=== PATIENT | female | born 1980 | race Two or more races ===

== ENCOUNTER 2025-01-24 09:43 | Outpatient (CLI) | payer BC, SELFPAY ==
--- NOTE | ~2025-01-24 | US_ITS ---
EXAM: PELVIC ULTRASOUND HISTORY: HEAVY VAGINAL BLEEDING, ABNORMAL UTERINE BLEEDING COMPARISON: None. FINDINGS: UTERUS: 8.6 x 6.7 x 5.0 cm. The uterus is anteverted and anteflexed. The endometrial complex measures 5 mm. A striated appearance of the myometrium is present, for which adenomyosis is suspected Within the posterior fundus of uterus is focus of mixed echogenicity measuring 4.2 x 3.4 x 4.2 cm, li sameer representing fibroid. RIGHT OVARY: The right ovary is unremarkable in echogenicity and size measuring 2.7 x 2.3 x 2.1 cm. Dopplerable flow is identified. Dominant follicle is noted within the right ovary. LEFT OVARY: Despite prolonged interrogation, the left ovary was not visualized No free fluid is identified within the pelvis. IMPRESSION: Fibroid uterus. Dominant follicle within the right ovary. Findings within the myometrium of the uterus suggesting adenomyosis. Reviewed, dictated and finalized at location A.
[2025-01-24 10:08] LABS: Hematocrit 29.6 % (35.0-49.0); Hemoglobin 7.9 g/dL (12.0-15.0); Mean Corpuscular HGB Conc 26.7 g/dL (32-36); Mean Corpuscular Volume 63.5 fL (78.0-102.0); Mean Platelet Volume 9.4 fl (9.2-11.8); Platelet Count Result 360 K/mm3 (150-420); Red Blood Count 4.66 M/mm3 (4.20-5.40); Red Cell Distribution Width 19.5 % (11.6-14.4); White Blood Count 6.5 K/mm3 (4.8-10.8)
[2025-01-24 10:37] LABS: Ferritin 3 ng/mL (8-252)
[2025-01-24 10:51] LABS: Iron 10 ug/dL (50-170); Percent Iron Saturation 3 % (12-57)
== END 2025-01-24 09:44 | disposition home or self-care (01) ==
PROVIDERS: PCP Internal Medicine; Visit Provider Nurse Practitioner Family
DX: N93.9 Abnormal uterine and vaginal bleeding, unspecified (principal); D25.9 Leiomyoma of uterus, unspecified
CPT/HCPCS: 36415; 76830; 76856; 82728; 83540; 83550; 85027

== ENCOUNTER 2025-02-01 09:09 | Outpatient (CLI) | payer BC, SELFPAY ==
[2025-02-01 09:32] VITALS: BP 124/63; PULSE 68; RESP 14; TEMP 36.6; O2SAT 99; BMI 24.1
[2025-02-01] MEDS: IRON SUCROSE COMPLEX 300 MG in SODIUM CHLORIDE 0.9% IV 235 ML 125 MG IVPB (09:45)
[2025-02-01 12:03] VITALS: BP 124/68; PULSE 78; RESP 14; O2SAT 100
--- NOTE | 2025-02-01 12:04 | PC.NURSE ---
Patient here for Venofer infusion. Education given. All concerns voiced answered. Infusion administered. SEE MAR/patient care notes. Tolerated well.
== END 2025-02-01 09:10 | disposition home or self-care (01) ==
PROVIDERS: PCP Internal Medicine; Visit Provider Internal Medicine
DX: D50.9 Iron deficiency anemia, unspecified (principal)
CPT/HCPCS: 96365; 96366; J1756; J7050

== ENCOUNTER 2025-02-09 09:17 | Outpatient (CLI) | payer BC, SELFPAY | END 2025-02-09 09:18 | disposition home or self-care (01) | LOC: CHSTREATRM 12:45 | PROVIDERS: PCP Internal Medicine; Visit Provider Nurse Practitioner Family | DX: D50.9 Iron deficiency anemia, unspecified (principal) | CPT/HCPCS: 96365; 96366; J1756 ==

== ENCOUNTER 2025-03-07 11:22 | Outpatient (CLI) | payer BC, SELFPAY ==
--- NOTE | 2025-03-07 11:57 | ECG_ITS ---
Test Date: 2025-03-07 12:08:28 Measurements Intervals [place] Rate: 58 P: 22 MS: 132 QRS: 46 QRSD: 85 T: 32 QT: 418 QTc: 411 Interpretive Statements SINUS BRADYCARDIA RSR' IN V1 OR V2, PROBABLY NORMAL VARIANT No previous ECG available for comparison Electronically Signed On 03-08-2025 15:06:26 CDT by Andrea Dukes M.D.
[2025-03-07 12:03] LABS: Hemoglobin 13.7 g/dL (12.0-15.0); Immature Platelet Fraction Pct 3.5 % (1.0-7.0); Mean Corpuscular HGB Conc 29.8 g/dL (32-36); Mean Corpuscular Hemoglobin 23.4 pg (27.0-31.0); Mean Corpuscular Volume 78.6 fL (78.0-102.0); Mean Platelet Volume 9.8 fl (9.2-11.8); Platelet Count Result 253 K/mm3 (150-420); Red Blood Count 5.85 M/mm3 (4.20-5.40); White Blood Count 5.9 K/mm3 (4.8-10.8)
== END 2025-03-07 11:23 | disposition home or self-care (01) ==
LOC: CHSLAB 11:26
PROVIDERS: PCP Internal Medicine; Visit Provider Obstetrics & Gynecology
DX: Z01.818 Encounter for other preprocedural examination (principal); R00.1 Bradycardia, unspecified
CPT/HCPCS: 36415; 85027; 85055; 93005

== ENCOUNTER 2025-03-28 00:58 | Day surgery (SDC) | payer BC, SELFPAY ==
[2025-03-20 16:40] VITALS: BMI 24.7
--- NOTE | 2025-03-20 17:22 | PC.NURSE ---
Report to the Outpatient Waiting Room, entrance under the green pavilion located off [facility], at 0800 on 03-28-25. Planned Procedure Time: 1000.? Time changes happen often and if your time is changed the preop area will call you the afternoon before. - You and your visitor will be asked to self-screen and do not enter if you have any COVID symptoms. Please call surgeon if you need to reschedule. - A mask is optional within the hospital at this time. Patients may have clear liquids (water, carbonated beverages, clear teas, apple juice) until 3 hours prior to surgery with a maximum of 20 ounces. 0700 - No food from midnight until time of surgery and no smoking, or chewing tobacco (or any form of nicotine). No chewing gum, candy or mints. - Infants may have breast milk until 4 hours before surgery, formula 6 hours prior to surgery. - Children will be allowed to drink immediately following surgery.? If applicable, please bring a bottle or sippy cup to assist with drinking. Juice, water, soda, and popsicles are readily available.? For infants on formula, please bring formula the day of surgery.? Pacifiers are allowed. Take only the following medications with a SIP of water on the morning of surgery: control DO NOT STOP ANY OF YOUR OTHER PRESCRIPTION MEDICATIONS PRIOR TO SURGERY EXCEPT THE FOLLOWING Hold all vitamins and supplements for 3 days per anesthesiologist. Medications to discontinue per physician: N/A Please no make-up, nail comoran, hairspray, perfume, deodorant, or body powder the day of surgery.? No jewelry (including any body piercings) or valuables the day of surgery, leave them at home.? Please take a shower or bath the night before, or the morning of, surgery with an antibacterial soap.? Wear comfortable, loose fitting clothing.? Children are encouraged to wear pajamas. - Jewelry must be removed prior to entering the operating room.? Rings and piercings that are not removed may be cut off. - The hospital will not accept responsibility for valuables.? - Please leave all valuables, including medications, at home the day of surgery. If you are going home after surgery, a licensed rolloff driver must drive you home.? - NO public transportation without another adult if you receive anesthesia. - We recommend that an adult stay with you for 24 hours following discharge. - We also recommend that you do not drive, make important decision, drink alcoholic beverages, or take any drugs that were not prescribed by your health care provider for at least 24 hours after your discharge time. For Pediatric surgeries, we recommend two adults accompany the child home. Follow any additional instructions given to you from your surgeon. Telephone instructions given to Andres Arriaza and asked if any additional questions and then verbalized understanding. Patient advised to call surgeon office or pre surgery nurse liaison [phone] if any additional questions.
[2025-03-28] MEDS: ACETAMINOPHEN 500 MG TABLET 1000 MG PO (10:00)
[2025-03-28] MEDS: LACTATED RINGERS 1,000 ML 30 ML IV CONT (10:00)
--- NOTE | 2025-03-28 10:04 | WPDANESEPPF ---
Anes - Initial Pre Proc Eval Procedure: Operation Date: 03/28/25 11:00 Proposed Procedures p Hysteroscopy Dilation and Curettage with Possible Removal of Any Endometrial Lesions if Necessary - Philip Bae MD Date/Time: 03/28/25 10:04 Surgeon: Philip Bae MD Pre Op Diagnosis: abnormal uterine bleeding Patient Data Age: 45 Gender: F Height: 1.57 m Weight: 61.24 kg Allergies Allergy/AdvReac Type Severity Reaction Status Date / Time No Known Allergies Allergy Unverified 03/20/25 16:41 Home Medications ?Medication ?Instructions ?Recorded ?Confirmed ?Type drospirenone (contraceptive) 4 mg 1 tablet PO DAILY 03/07/25 03/20/25 History (28) tablet (Slynd) CBD See Rx Instructions .Route .COMPLEX 03/20/25 03/20/25 History cholecalciferol (vitamin D3) 125 125 mcg PO DAILY 03/20/25 03/20/25 History mcg (5,000 unit) tablet (Vitamin D3) lactobacillus combo no.11 15 1 cap PO DAILY 03/20/25 03/20/25 History billion cell sprinkle capsule (Probiotic) vitamin B complex (B-Complex 1 tablet PO DAILY 03/20/25 03/20/25 History tablet) Patient hx anesthesia problems: none Family hx anesthesia problems: none Results Review: All pre-operative results and documents have been reviewed as part of the pre-operative evaluation. [facility] Surgical History Surgical History Hx of breast reduction, elective Family History Family History Father Colon cancer Mother Depression Anxiety Grandparent Diabetes mellitus Heart disease Social History Social History Smoking status: Never smoker Tobacco type: cigarettes Second hand tobacco smoke exposure: No Alcohol intake: never Substance use: never Substance use type: does not use Anes - Eval Final PreProcedure Day of Procedure 03/28/25 10:04 Patient weight: normal Heart: regular rate and rhythm Lungs: clear to auscultation Airway: Mallampati scale class II Neurological: alert and oriented Last oral intake: >/= 8 hours ASA classification: II Emergent: no Anesthetic plan: proceed Anesthesia type and monitoring: general GIVS and standard monitoring Results Review: All pre-operative results and documents have been reviewed as part of the pre-operative evaluation. Informed Consent: The patient's anesthetic plan and its attendant risks and benefits were discussed with the patient/family/POA. Questions were solicited and answers provided to the satisfaction of the patient/family/POA.
--- NOTE | 2025-03-28 10:30 | WPDHPUPDATE1 ---
History and Physical Update Update Date/Time: 03/28/25 10:30 History and Physical has been reviewed, including an updated exam of the patient. There are NO changes in the patient's condition. Risks, benefits, and alternatives have been discussed and questions answered. Patient agrees to proceed with procedure.
--- NOTE | 2025-03-28 10:37 | WPDHPUPDATE1 ---
History and Physical Update Update Date/Time: 03/28/25 10:37 History and Physical has been reviewed, including an updated exam of the patient. There are NO changes in the patient's condition. Risks, benefits, and alternatives have been discussed and questions answered. Patient agrees to proceed with procedure.
[2025-03-28 10:45] VITALS: BP 112/65; PULSE 68; TEMP 36.4; O2SAT 100; BMI 25.0
[2025-03-28 10:50] LABS: BEDSIDEPREGUCG Negative (Negative)
[2025-03-28] MEDS: ceFAZolin 2 GM/D5W 50 ML 2 GM/50 ML BAG IVPB (10:51)
[2025-03-28] MEDS: LIDOCAINE 1% LOCAL INJ 10 ML VIAL INFILTRATE (11:08)
--- NOTE | 2025-03-28 11:16 | S_PTH ---
PATIENT: Andres Arriaza LOC: [facility]#:[id number] AGE/SX: 45/F ROOM: RE03/28/[address]: Philip Bae MD : 1980 BED: DIS: 03/28/2025 SPEC #: [id number] RECD: 03/28/25 12:31 STATUS: WALKER REQ #: [id number] MAURA: 03/28/25 11:[address]: Philip Bae DEPT: [facility] Surgical RECD BY: Yakov Huber ENTERED: 03/28/25 12:32 SP TYPE: Surgical OTHR DR: Carlos Pratt MD Tissues: A - Endometrial Curettings Procedures: Hematoxylin and Eosin Stain Gross and Microscopic Level 4
[2025-03-28 11:26] VITALS: BP 88/59; PULSE 63; RESP 14; O2SAT 100
--- NOTE | 2025-03-28 11:48 | P.OP_ITS ---
Procedure Note - Detailed Date of Procedure 03/28/25 Pre-op Diagnosis abnormal uterine bleeding, endometrial polyp on endometrial biopsy Post-op Diagnosis Same Procedure Performed hysteroscopy dilation and curettage and removal of endometrial lesion Surgeon Philip Bae MD Anesthesia MAC and Local Indications abnormal uterine bleeding, endometrial polyp on endometrial biopsy. Findings Uterus sound to 8.5 cm, small polyp from the lower uterus, the rest of the cavity was normal appearing. Description of Procedure After informed consent was obtained patient was taken to the operating room and adequate IV sedation was administered. Attention was turned to the vagina. Speculum was inserted. Single-tooth tenaculum placed on the anterior lip of the cervix. 10 cc of 1% lidocaine was injected at the cervical vaginal interface at the 2, 5, 8, 10 position. The uterus was sounded to 8.5 cm. The cervix was dilated to an 6 Don dilator. The hysteroscope was inserted into the cavity. Small residual polyp seen coming from the lower uterus through to the upper cervix. The hysteroscope was removed. The Aveta instrument was inserted into the cavity. The polyp was removed. The hysteroscope was removed and a sharp curettage was performed. The single- tooth tenaculum was removed hemostasis was noted at the tenaculum site. Sponge count correct. The patient taken to recovery in stable condition. Estimated Blood Loss 5 Drains No Packing No Pathology Yes ( endometrial curettings and shavings) Complications No immediate complications Condition Stable Disposition Same day [facility] Billing Surgery - Charge Forward: Surgery Billing
[2025-03-28 11:50] VITALS: BP 104/62; PULSE 59; RESP 14
[2025-03-28 12:20] VITALS: BP 104/60; PULSE 72; RESP 14
== END 2025-03-28 12:34 | disposition home or self-care (01) ==
PROVIDERS: PCP Internal Medicine; Visit Provider Obstetrics & Gynecology
PROC: 0U5B8ZZ Destruction of Endometrium, Via Natural or Artificial Opening Endoscopic (ICD-10-PCS; CPT 58563; principal; 2025-03-28 11:00)
DX: N84.0 Polyp of corpus uteri (principal); Z98.890 Other specified postprocedural states; Z80.0 Family history of malignant neoplasm of digestive organs; Z82.49 Family history of ischemic heart disease and other diseases of the circulatory system
CPT/HCPCS: 58558; 88305; A9270; J0690; J2003; J2250; J2704; J3010; J7120